=== PATIENT | male | born 1970 | race Caucasian/White ===

== ENCOUNTER 2020-01-08 15:27 | Inpatient (IN) | payer MEDICAID, OTHER ==
[~2020-01-08] VITALS: Ht 198.1 cm; Wt 159.0 kg
[2020-01-08] MEDS ORDERED: SODIUM CHLORIDE 0.9% 1,000 ML IV ONE ×2 (16:00)
[2020-01-08] MEDS ORDERED: THIAMINE 100mg/ml INJ (200mg/2ml VIAL) IV ONE (16:00)
[2020-01-08 17:02] LABS: Basophils # (auto) 0.1 10 ^3/uL (0-0.2); Eosinophils # (auto) 0.2 10 ^3/uL (0-0.8); Eosinophils % (auto) 3.4 % (0.0-7.0); Hematocrit 35.5 % (41.0-53.0); Lymphocytes # (auto) 1.3 10 ^3/uL (0.4-5.4); Monocytes # (auto) 0.4 10 ^3/uL (0-1.3); Neutrophils # (auto) 2.5 10 ^3/uL (1.6-8.6); Nucleated Red Blood Cells % 0.1 %; Red Blood Cells 4.42 10^6/uL (4.5-5.90); White Blood Cell 4.5 10^3/uL (4.4-10.8)
[2020-01-08 17:06] LABS: Basophils % (auto) 2.2 % (0.0-2.0); Hemoglobin 11.4 g/dL (13.5-17.5); Mean Corpuscular Hemoglobin 25.8 pg (28.0-32.0); Mean Corpuscular Hgb Conc. 32.2 g/dL (32.0-36.0); Mean Corpuscular Volume 80.2 fL (80.0-100.0); Monocytes % (auto) 9.4 % (0.0-12.0); Platelet Count (auto) 300 10^3/uL (140-450); Red Cell Distribution Width 15.8 % (11.8-14.3)
[2020-01-08 17:14] LABS: Albumin 2.9 g/dL (3.4-5.0); Anion Gap 7 (5-15); Blood Urea Nitrogen 11 mg/dL (7-18); Calcium 7.4 mg/dL (8.5-10.1); Carbon Dioxide 23 mmol/L (21-32); Chloride 113 mmol/L (98-107); Glucose 98 mg/dL (74-106); Magnesium 2.5 mg/dL (1.6-2.6); Potassium 3.4 mmol/L (3.5-5.1); Sodium 143 mmol/L (136-145)
[2020-01-08 17:17] LABS: CRP High Sensitivity 0.11 mg/dL (< 0.3)
[2020-01-08 17:20] LABS: Alanine Aminotransferase 20 U/L (16-61); Alkaline Phosphatase 72 U/L (45-117); Aspartate Aminotransferase 18 U/L (15-37); BUN/Creatinine Ratio 12.2; Bilirubin, Total 0.2 mg/dL (0.2-1.0); GFR African American 114 mL/min; GFR Non-African American 95 mL/min; INR 0.93 (0.9-1.15); Partial Thromboplastin Time 22.7 sec (23.0-31.2); Total Protein 5.9 g/dL (6.4-8.2)
[2020-01-08] MEDS ORDERED: LABETALOL HCL 5 MG/ML 4ML SYRINGE IV PRN (18:30)
[2020-01-08] MEDS ORDERED: NITROGLYCERIN 0.4 MG SL TAB SL PRN (18:30)
[2020-01-08] MEDS ORDERED: POTASSIUM EFFERVESENT TAB 25 MEQ GT ONE (18:30)
[2020-01-08] MEDS ORDERED: MORPHINE SULF INJ 2 MG/ML SYRINGE 1ML IV PRN (18:30)
[2020-01-08 20:20] VITALS: BP 137/86
--- NOTE | 2020-01-08 20:20 | NUR ---
Pt arrived via stretcher. pt transferred self to hospital bed. pt is ambulatory. pt is on room air.
--- NOTE | 2020-01-08 21:50 | NUR ---
rapid Key swab sample collected
--- NOTE | 2020-01-08 21:55 | NUR ---
MRSA swab sample collected
[2020-01-08] MEDS: LORazepam 0.5 MG TAB PO PRN (22:24)
[2020-01-08] MEDS: APIXABAN 5 MG TAB PO SCH (22:24)
--- NOTE | 2020-01-08 23:00 | NUR ---
Rapid Key swab and MRSA swab walked to lab by [employer] Repairer.
[2020-01-09] MEDS: ONDANSETRON HCL 4 MG/2 ML VIAL IV PRN (00:31)
[2020-01-09] MEDS ORDERED: ARIP1TAB7 PO (01:05)
[2020-01-09] MEDS ORDERED: SERT25TA84 PO (01:05)
[2020-01-09] MEDS ORDERED: APIX5TAB PO (01:05)
[2020-01-09] MEDS: HYDROcodone-ACET 5/325MG TAB PO PRN ×3 (04:28→17:59)
[2020-01-09 05:00] VITALS: BP 150/91
--- NOTE | 2020-01-09 05:10 | NUR ---
H In House Covid 19 swab walked down to lab by Breezy FLOYD.
--- NOTE | 2020-01-09 07:31 | NUR ---
closing note. pt dangling at the bedside. pt is on room air. no s/s of distress at this time. endorsed care to melody Bernal.
--- NOTE | 2020-01-09 08:00 | NUR ---
Opening Shift Note Assumed care of patient, awake, alert and oriented X4. No S/S of distress/SOB, complains of right arm pain, 8/10, informed will medicate with prescribed pain medication, verbalized understanding. Tele# 19, sinus tachycardia @ 94 bpm. IV to left forearm, 18 gauge, patent and saline locked. Instructed on POC and to call for assist PRN, verbalized understanding. Bed locked, in lowest position, call light within reach, will continue to monitor for changes Q1hr and PRN.
[2020-01-09 08:52] VITALS: BP 142/83
[2020-01-09 08:54] LABS: Basophils # (auto) 0.1 10 ^3/uL (0-0.2); Eosinophils # (auto) 0.1 10 ^3/uL (0-0.8); Hemoglobin 11.2 g/dL (13.5-17.5); Mean Corpuscular Volume 79.3 fL (80.0-100.0); Neutrophils # (auto) 4.7 10 ^3/uL (1.6-8.6); White Blood Cell 6.7 10^3/uL (4.4-10.8)
[2020-01-09 08:57] LABS: Eosinophils % (auto) 1.9 % (0.0-7.0); Lymphocytes # (auto) 1.2 10 ^3/uL (0.4-5.4); Lymphocytes % (auto) 17.6 % (10.0-50.0); Mean Corpuscular Hemoglobin 26.1 pg (28.0-32.0); Monocytes # (auto) 0.6 10 ^3/uL (0-1.3); Monocytes % (auto) 8.5 % (0.0-12.0); Nucleated Red Blood Cells % 0.1 %; Platelet Count (auto) 242 10^3/uL (140-450); Red Blood Cells 4.28 10^6/uL (4.5-5.90); Red Cell Distribution Width 15.7 % (11.8-14.3)
[2020-01-09 09:12] LABS: Albumin 2.8 g/dL (3.4-5.0); Potassium 3.9 mmol/L (3.5-5.1)
[2020-01-09 09:27] LABS: BUN/Creatinine Ratio 12.7; Bilirubin, Total 0.4 mg/dL (0.2-1.0); Calcium 7.7 mg/dL (8.5-10.1); Total Protein 5.6 g/dL (6.4-8.2)
--- NOTE | 2020-01-09 09:30 | NUR ---
ROUNDS Jose Angel Montenegro at bedside for Cardiology consult. New orders received and followed through. Patient updated on plan of care, verbalized understanding.
[2020-01-09] MEDS: DOCUSATE CALCIUM 240 MG CAP PO SCH (10:00)
[2020-01-09] MEDS: THIAMINE HCL 100 MG TAB PO SCH (10:40)
[2020-01-09] MEDS: APIXABAN 5 MG TAB PO SCH ×2 (10:40→21:28)
[2020-01-09] MEDS: amLODIPine BESYLATE 5 MG TAB PO SCH (10:40)
[2020-01-09] MEDS: PANTOPRAZOLE 40 MG TAB PO SCH (10:40)
--- NOTE | 2020-01-09 11:45 | NUR ---
COVID In-House COVID negative, informed EVERETT Caballero, Charge Nurse, verbalized understanding.
--- NOTE | 2020-01-09 11:46 | NUR ---
WOUND CARE NOTE: Wound care in to see patient per wound care request regarding "Rt Toe abrasions". Bedside nurse took photograph of patient's abrasions upon admission for reference. Patient is 49 years old male with admitted for Chest Pain. Patient is resting in bed in Rm. 244-8. He's awake, alert and fully oriented. He's in no stated pain at this time. He's ambulatory and self turning and repositioning. His Delmar score is 20. No other wound noted other than open abrasions to patient's Rt 4th toe (0.5x0.5cm) and Rt 5th toe (1x1cm). Abrasions are red with pink yuni wound, no drainage or odor noted. Patient reported abrasions are from wearing an ill fitting shoe without socks. Patient denies history of Diabetes. Cleansed patient's Rt toe abrasions with mild soap and water, patted dry, applied Thera honey gel and covered with Bad aid. Patient tolerated well. No further wound care monitoring needed at this time. RECOMMENDATION: Nursing to continue with EOD/PRN dressing change to Rt 4th and Rt 5th toe abrasions per MD order, reconsult for active wound, pressure injury, Low Delmar score of 12 and below. Addendum: 01/09/20 at 1449 by Naya Baer RN Amended: Links added.
[2020-01-09 12:35] VITALS: BP 148/81
[2020-01-09 14:22] LABS: Urine Bacteria NONE SEEN /hpf (None Seen); Urine Blood Negative /uL (Negative); Urine Specific Gravity 1.013 (1.001-1.035); Urine WBC <1 /hpf (0 - 3)
[2020-01-09 14:33] LABS: Alcohol, Urine < 3.0 mg/dL (0-10); Amphetamine Screen, Urine NEGATIVE (NEGATIVE); Barbiturate Scree,Urine NEGATIVE (NEGATIVE); Benzodiazephine Screen, Urine NEGATIVE (NEGATIVE); Cannabinoid Screen, Urine NEGATIVE (NEGATIVE); Cocaine Screen, Urine NEGATIVE (NEGATIVE); Opiate Scree,Urine NEGATIVE (NEGATIVE); Phencyclidine Screen, Urine NEGATIVE (NEGATIVE)
--- NOTE | 2020-01-09 16:12 | NUR ---
REPORT Verbal report given to EVERETT Kent. Patient to be transported to room 285-B.
[2020-01-09 16:33] VITALS: BP 141/94
--- NOTE | 2020-01-09 16:40 | NUR ---
TRANSFERRED TO ROOM 285-B Patient transferred to room 285-B via wheelchair with all personal belongings, no distress noted upon departure.
--- NOTE | 2020-01-09 16:42 | NUR ---
Received patient from [facility]. A/O x4, no s/s of distress noted, reports 7/10 pain. Bed in low and locked position. Will continue to monitor q1hr and prn
[2020-01-09 17:28] VITALS: BP 141/84
--- NOTE | 2020-01-09 17:59 | NUR ---
medicated for pain to the right arm
--- NOTE | 2020-01-09 19:48 | NUR ---
Tele box 19 from [facility] sent back to ICU, will request new one for patient.
--- NOTE | 2020-01-09 20:00 | NUR ---
Opening Shift Note Assumed care of patient, awake and alert. No S/S of distress/SOB or pain. Instructed on POC and to call for assist PRN, will continue to monitor for changes Q1hr and PRN.
[2020-01-09] MEDS: LORazepam 0.5 MG TAB PO PRN (21:28)
[2020-01-09 22:00] VITALS: BP 142/81
[2020-01-10 05:07] VITALS: BP 120/84
[2020-01-10 06:15] LABS: Anion Gap 4 (5-15); BUN/Creatinine Ratio 15.4; Blood Urea Nitrogen 12 mg/dL (7-18); Calcium 8.2 mg/dL (8.5-10.1); Carbon Dioxide 27 mmol/L (21-32); Chloride 107 mmol/L (98-107); GFR African American 135 mL/min; GFR Non-African American 112 mL/min; Glucose 90 mg/dL (74-106); Magnesium 2.5 mg/dL (1.6-2.6); Potassium 4.2 mmol/L (3.5-5.1); Sodium 138 mmol/L (136-145)
--- NOTE | 2020-01-10 07:18 | NUR ---
Report given to Hanny Dickerson, patient is resting no distress.
--- NOTE | 2020-01-10 07:30 | NUR ---
Opening Shift Note Assumed care of patient, awake and alert. No S/S of distress/SOB or pain on room air. Instructed on POC and to call for assist PRN, will continue to monitor for changes Q1hr and PRN. Bed in low and locked position, rails up x2, no-slip socks on.
[2020-01-10] MEDS: HYDROcodone-ACET 5/325MG TAB PO PRN ×3 (08:14→22:38)
[2020-01-10 08:43] VITALS: BP 156/87
--- NOTE | 2020-01-10 10:00 | NUR ---
CAUSE ANALYST KIM AT NURSES STATION PATIENT REQUESTING TO PROCEED WITH STRESS TEST TOMORROW, ORDERS TO BE ADDED, NPO AT MIDNIGHT.
[2020-01-10] MEDS: DOCUSATE CALCIUM 240 MG CAP PO SCH (10:07)
[2020-01-10] MEDS: amLODIPine BESYLATE 5 MG TAB PO SCH (10:07)
[2020-01-10] MEDS: PANTOPRAZOLE 40 MG TAB PO SCH (10:08)
[2020-01-10] MEDS: APIXABAN 5 MG TAB PO SCH ×2 (10:08→22:39)
[2020-01-10] MEDS: THIAMINE HCL 100 MG TAB PO SCH (10:08)
--- NOTE | 2020-01-10 11:37 | NUR ---
DR MONTOYA AT BEDSIDE
[2020-01-10 13:00] VITALS: BP 132/75
--- NOTE | 2020-01-10 14:20 | NUR ---
SEAFOOD HARVESTER AT BEDSIDE
[2020-01-10 16:41] VITALS: BP 143/80
[2020-01-10 22:15] VITALS: BP 125/82
[2020-01-10] MEDS: LORazepam 0.5 MG TAB PO PRN (22:38)
[2020-01-11] VITALS (9 sets, daily range): BP systolic 107–142; BP diastolic 66–90
[2020-01-11] MEDS: HYDROcodone-ACET 5/325MG TAB PO PRN ×3 (04:59→21:16)
--- NOTE | 2020-01-11 07:15 | NUR ---
closing note pt resting in semi fowlers with eyes closed. no s/s of pain or discomfort. endorsed care to day shift EVERETT Lei.
[2020-01-11] MEDS ORDERED: ADENOSINE IV STA (08:29)
[2020-01-11] MEDS ORDERED: GIVE UN DILUTED IV STA (08:29)
[2020-01-11] MEDS: DOCUSATE CALCIUM 240 MG CAP PO SCH ×2 (10:00→12:01)
[2020-01-11] MEDS ORDERED: dilTIAZem 25 MG/5 ML VIAL IV ONE ×2 (10:30)
[2020-01-11] MEDS ORDERED: DIGOXIN (250MCG/ML) 2 ML AMPULE ONE (10:56)
[2020-01-11] MEDS ORDERED: SODIUM CHLORIDE 0.9% 500 ML IV ONE (11:00)
[2020-01-11] MEDS ORDERED: DIGOXIN (250MCG/ML) 2 ML AMPULE IV ONE ×2 (11:00→15:45)
--- NOTE | 2020-01-11 11:27 | NUR ---
PATIENT WAS NOTED TO HAVE SUSTAINED TACHYCARDIA AFTER STRESS TEST WAS COMPLETED. AT THAT TIME HEATH ALVAREZ WAS NOTIFIED OF HR AND ORDERS WERE RECEIVED AND CARRIED OUT. MONITORED PATIENT FOR OVER AN HOUR. PER HEATH ALVAREZ OK TO SEND PATIENT BACK TO FLOOR AFTER LAST SET OF IMAGES IN RADIOLOGY. CALLED FABIANO APONTE RN AND UPDATED HER ON PATIENTS STATUS AND LET HER KNOW CARDIOLOGY WOULD LIKE AND UPDATE IN AN HOUR REGARDING PATIENTS HR AND RHYTHM.
[2020-01-11] MEDS: PANTOPRAZOLE 40 MG TAB PO SCH (12:01)
[2020-01-11] MEDS: APIXABAN 5 MG TAB PO SCH ×2 (12:01→21:14)
[2020-01-11] MEDS: THIAMINE HCL 100 MG TAB PO SCH (12:02)
[2020-01-11] MEDS: amLODIPine BESYLATE 5 MG TAB PO SCH (12:03)
--- NOTE | 2020-01-11 15:18 | NUR ---
Spoke to Viktoria regarding pt's HR go up to 160 and EKG shows AF with RVR. Received new orders, noted and carried it out.
--- NOTE | 2020-01-11 15:42 | NUR ---
Viktoria QUALITY LAB TECHNICIAN at bedside stated to hold DC and give metoprolol 5 mg IV once and Digoxin 500 mcg once IV.
--- NOTE | 2020-01-11 15:44 | NUR ---
Held DC per Viktoria JOE.
[2020-01-11] MEDS ORDERED: AMIODARONE HCL 150 MG in D5W 5% 100 ML IV ONE (15:45)
[2020-01-11] MEDS ORDERED: METOPROLOL TARTRATE 1MG/1ML-5ML VIAL IV ONE (15:45)
[2020-01-11] MEDS ORDERED: AMIODARONE 450mg/250ml AE 250 ML IV SCH ×2 (16:00→22:00)
--- NOTE | 2020-01-11 20:45 | NUR ---
Ekg at bedside
--- NOTE | 2020-01-11 20:55 | NUR ---
Hospitalist Spoke with hospitalist Xavier regarding pt complaints of palpitations. Presented EKG to hospitalist as well. No new orders received. EKG signed and placed in chart.
[2020-01-11] MEDS: AMIODARONE HCL 200 MG TAB PO SCH (21:14)
[2020-01-11] MEDS: LORazepam 0.5 MG TAB PO PRN (21:15)
[2020-01-11] MEDS: METOPROLOL TARTRATE 25 MG TAB PO SCH (21:15)
[2020-01-12] MEDS ORDERED: AMIODARONE 450mg/250ml AE 250 ML IV ONE (00:44)
[2020-01-12] MEDS: HYDROcodone-ACET 5/325MG TAB PO PRN ×4 (02:09→21:34)
[2020-01-12] MEDS: ONDANSETRON HCL 4 MG/2 ML VIAL IV PRN ×2 (02:09→21:32)
[2020-01-12 05:00] VITALS: BP 104/60
--- NOTE | 2020-01-12 07:23 | NUR ---
closing note pt is resting in right lateral position. pt is on an amiodarone IV drip at a rate of 16.66ml/hr. no s/s of distress at this time. pt is stable. endorsed care to day shift RN
--- NOTE | 2020-01-12 07:29 | NUR ---
Spoke to Viktoria LAST SAWYER regarding Amiodarone drip was running 1 mg all night, per Viktoria to stop the drip and monitor.
[2020-01-12 09:00] VITALS: BP 106/69
--- NOTE | 2020-01-12 09:13 | NUR ---
Viktoria BECK OPERATOR at bedside informed patient that he is going to get ALDO with cardioversion by Dr. Hand this afternoon.
[2020-01-12] MEDS: PANTOPRAZOLE 40 MG TAB PO SCH (09:23)
[2020-01-12] MEDS: AMIODARONE HCL 200 MG TAB PO SCH ×2 (09:23→22:50)
[2020-01-12] MEDS: APIXABAN 5 MG TAB PO SCH ×2 (09:23→22:50)
[2020-01-12] MEDS: amLODIPine BESYLATE 5 MG TAB PO SCH (09:23)
[2020-01-12] MEDS: THIAMINE HCL 100 MG TAB PO SCH (09:24)
[2020-01-12] MEDS: METOPROLOL TARTRATE 25 MG TAB PO SCH ×2 (09:24→22:51)
[2020-01-12] MEDS: DOCUSATE CALCIUM 240 MG CAP PO SCH (09:24)
--- NOTE | 2020-01-12 11:30 | NUR ---
Per Dr. Shin to hold DC, monitor patient after cardioversion.
[2020-01-12 13:00] VITALS: BP 121/72
[2020-01-12] MEDS ORDERED: LIDOCAINE VISCOUS 2% 15ML UD ONE (13:33)
[2020-01-12] MEDS ORDERED: fentaNYL CITRATE 100 MCG/2 ML VL ONE (13:33)
[2020-01-12] MEDS ORDERED: MIDAZOLAM HCL 1MG/1ML-2 ML VIAL ONE (13:33)
[2020-01-12] MEDS ORDERED: ONDANSETRON HCL 4 MG/2 ML VIAL ONE (13:52)
[2020-01-12] MEDS ORDERED: fentaNYL CITRATE 100 MCG/2 ML VL IV ONE (14:30)
[2020-01-12] MEDS ORDERED: MIDAZOLAM HCL 1MG/1ML-2 ML VIAL IV ONE (14:30)
[2020-01-12] MEDS ORDERED: LIDOCAINE VISCOUS 2% 15ML UD PO PRN (14:30)
--- NOTE | 2020-01-12 14:47 | NUR ---
Nutrition Assessment Notes Please refer to link for full assessment notes. Est Energy needs: 1717-7671 kcals (11-14 kcal/kgBW) Est Protein needs: 125-156 gms/day (0.8-1.0 gm/kgBW) Will continue to monitor and reassess prn. Addendum: 01/12/20 at [address] Amended: Links added.
[2020-01-12 14:59] VITALS: BP 102/65
--- NOTE | 2020-01-12 15:00 | NUR ---
Patient came back from laboratory [facility]er s/p cardioversion. Patient awake, alert, oriented x 4 and verbally responsive. No respiratory distress noted .Skin is warm and dry to touch. EKG shows NSR 70-80. Denied any pain at this time. Placed a call light within reach, will continue to monitor.
[2020-01-12 17:00] VITALS: BP 117/52
[2020-01-12 22:00] VITALS: BP 113/62
[2020-01-12] MEDS: LORazepam 0.5 MG TAB PO PRN (23:02)
[2020-01-13 05:00] VITALS: BP 127/57
[2020-01-13] MEDS: ONDANSETRON HCL 4 MG/2 ML VIAL IV PRN (05:38)
[2020-01-13] MEDS: HYDROcodone-ACET 5/325MG TAB PO PRN (05:40)
--- NOTE | 2020-01-13 05:40 | NUR ---
Reva 5/325 i po and zofran given for c/o pain and nausea prob with Reva. Pt falling asleep easily between requesting and receiving meds. Also requested crackers to help soothe his stomach. No gelatin available at this time.
[2020-01-13 07:09] LABS: Basophils # (auto) 0.1 10 ^3/uL (0-0.2); Eosinophils # (auto) 0.3 10 ^3/uL (0-0.8); Eosinophils % (auto) 4.8 % (0.0-7.0); Hematocrit 39.5 % (41.0-53.0); Hemoglobin 12.6 g/dL (13.5-17.5); Lymphocytes # (auto) 1.3 10 ^3/uL (0.4-5.4); Lymphocytes % (auto) 21.7 % (10.0-50.0); Mean Corpuscular Hemoglobin 25.5 pg (28.0-32.0); Mean Corpuscular Hgb Conc. 31.9 g/dL (32.0-36.0); Mean Corpuscular Volume 79.9 fL (80.0-100.0); Monocytes # (auto) 0.7 10 ^3/uL (0-1.3); Monocytes % (auto) 11.6 % (0.0-12.0); Neutrophils # (auto) 3.8 10 ^3/uL (1.6-8.6); Neutrophils % (auto) 60.9 % (37.0-80.0); Nucleated Red Blood Cells % 0.1 %; Platelet Count (auto) 244 10^3/uL (140-450); Red Blood Cells 4.94 10^6/uL (4.5-5.90); Red Cell Distribution Width 16.3 % (11.8-14.3); White Blood Cell 6.2 10^3/uL (4.4-10.8)
[2020-01-13 07:28] LABS: Potassium 4.1 mmol/L (3.5-5.1)
[2020-01-13 07:32] LABS: BUN/Creatinine Ratio 16.8; Calcium 8.5 mg/dL (8.5-10.1)
[2020-01-13 09:00] VITALS: BP 138/86
[2020-01-13] MEDS: THIAMINE HCL 100 MG TAB PO SCH (09:51)
[2020-01-13] MEDS: METOPROLOL TARTRATE 25 MG TAB PO SCH (09:52)
[2020-01-13] MEDS: APIXABAN 5 MG TAB PO SCH (09:52)
[2020-01-13] MEDS: AMIODARONE HCL 200 MG TAB PO SCH (09:52)
[2020-01-13] MEDS: PANTOPRAZOLE 40 MG TAB PO SCH (09:52)
[2020-01-13] MEDS: DOCUSATE CALCIUM 240 MG CAP PO SCH (09:54)
[2020-01-13 13:00] VITALS: BP 143/83
[2020-01-13] MEDS ORDERED: AMIO200T4 PO (13:18)
[2020-01-13] MEDS ORDERED: MET25T PO (13:18)
--- NOTE | 2020-01-13 15:55 | NUR ---
Discharge instructions given as ordered. Encourage to follow up with PMD as instructed. All questions and concerns addressed. Patient verbalized understanding. Medication reconciliation form completed and copy given to patient. IV removed with catheter intact, pressure dressing applied. Telemetry unit returned to ICU. Patient ambulated to vehicle with all personal belongings, accompanied by staff and . No distress noted at time of departure.
== END 2020-01-13 15:55 | disposition home or self-care (01) | DRG 203 ==
LOC: EDBD 15:27 → ER 15:27 → TELE 15:28 → TELE-E-ADS 20:20 → TELE-WESTW 01-09 16:42
PROVIDERS: ADMIT Family Medicine; ATTEND Internal Medicine
PROC: 5A2204Z Restoration of Cardiac Rhythm, Single (ICD-10-PCS; principal; 2020-01-12)
PROC: B24BZZ4 Ultrasonography of Heart with Aorta, Transesophageal (ICD-10-PCS; 2020-01-12)
DX: R07.89 Other chest pain (principal); I48.19 Other persistent atrial fibrillation; I11.0 Hypertensive heart disease with heart failure; E87.6 Hypokalemia; D64.9 Anemia, unspecified; F10.129 Alcohol abuse with intoxication, unspecified; E83.51 Hypocalcemia; Z68.41 Body mass index [BMI] 40.0-44.9, adult; E66.01 Morbid (severe) obesity due to excess calories; Z20.828 Contact with and (suspected) exposure to other viral communicable diseases; F41.8 Other specified anxiety disorders; Y90.9 Presence of alcohol in blood, level not specified; I50.9 Heart failure, unspecified; Z79.01 Long term (current) use of anticoagulants; Z86.718 Personal history of other venous thrombosis and embolism; Z91.040 Latex allergy status; Z88.2 Allergy status to sulfonamides; Z79.899 Other long term (current) drug therapy; E77.8 Other disorders of glycoprotein metabolism; E44.1 Mild protein-calorie malnutrition
CPT/HCPCS: 36415; 71045; 78452; 80048; 80053; 80061; 80307; 80320; 81001; 82607; 82728; 83615; 83735; 83880; 84443; 84484; 85025; 85379; 85610; 85730; 86141; 87081; 87426; 93005; 93017; 93306; 93312; 93971; 96361; 96374; 99152; G0378; J0153; J2250; J2405; J7060

== ENCOUNTER 2020-01-27 02:14 | Emergency (ER) | payer MEDICAID ==
[~2020-01-27] VITALS: Ht 195.6 cm; Wt 145.1 kg
[~2020-01-27 02:14] MED LIST: AMIO200T4 PO; APIX5TAB PO; ARIP1TAB7 PO; MET25T PO; SERT25TA84 PO
[2020-01-27] MEDS ORDERED: PROMETHAZINE HCL 25 MG/ML 1ML IV ONE (03:00)
[2020-01-27 03:05] LABS: Basophils # (auto) 0.1 10 ^3/uL (0-0.2); Eosinophils # (auto) 0 10 ^3/uL (0-0.8); Eosinophils % (auto) 0.5 % (0.0-7.0); Hemoglobin 14.2 g/dL (13.5-17.5); Mean Corpuscular Hemoglobin 24.9 pg (28.0-32.0); Monocytes # (auto) 0.4 10 ^3/uL (0-1.3)
[2020-01-27 03:07] LABS: Basophils % (auto) 1.9 % (0.0-2.0); Hematocrit 43.9 % (41.0-53.0); Lymphocytes % (auto) 35.5 % (10.0-50.0); Mean Corpuscular Hgb Conc. 32.3 g/dL (32.0-36.0); Monocytes % (auto) 7.4 % (0.0-12.0); Neutrophils % (auto) 54.7 % (37.0-80.0); Nucleated Red Blood Cells % 0.2 %; Platelet Count (auto) 317 10^3/uL (140-450); Red Blood Cells 5.69 10^6/uL (4.5-5.90); Red Cell Distribution Width 17.3 % (11.8-14.3); White Blood Cell 5.5 10^3/uL (4.4-10.8)
[2020-01-27 03:21] LABS: Albumin 3.2 g/dL (3.4-5.0); Anion Gap 12 (5-15); Blood Urea Nitrogen 12 mg/dL (7-18); Carbon Dioxide 20 mmol/L (21-32); Chloride 107 mmol/L (98-107); Glucose 93 mg/dL (74-106); Magnesium 2.5 mg/dL (1.6-2.6); Potassium 4.1 mmol/L (3.5-5.1); Sodium 139 mmol/L (136-145)
[2020-01-27 03:23] LABS: INR 0.99 (0.9-1.15)
[2020-01-27 03:26] LABS: Partial Thromboplastin Time < 20.0 sec (23.0-31.2)
[2020-01-27 03:27] LABS: Alanine Aminotransferase 48 U/L (16-61); Alkaline Phosphatase 173 U/L (45-117); Aspartate Aminotransferase 37 U/L (15-37); BUN/Creatinine Ratio 10.4; Bilirubin, Total 0.4 mg/dL (0.2-1.0); GFR African American 86 mL/min; GFR Non-African American 71 mL/min; Total Protein 6.6 g/dL (6.4-8.2)
[2020-01-27] MEDS ORDERED: IOHEXOL 350 MG/ML 100ML IJ ONE (03:56)
[2020-01-27] MEDS ORDERED: SODIUM CHLORIDE 0.9% 1,000 ML IV ONE (04:00)
[2020-01-27] MEDS ORDERED: THIAMINE INJ 100 MG in SODIUM CHLORIDE 0.9% 1,000 ML IV ONE (04:00)
[2020-01-27] MEDS ORDERED: THIAMINE 100mg/ml INJ (200mg/2ml VIAL) ONE (04:17)
[2020-01-27] MEDS ORDERED: LORazepam 2MG/ML-1ML VIAL IV ONE ×3 (05:15→08:30)
[2020-01-27] MEDS ORDERED: levETIRAcetam 500 MG/5ML INJ IV ONE (05:44)
[2020-01-27] MEDS ORDERED: ONDANSETRON HCL 4 MG/2 ML VIAL ONE (08:28)
[2020-01-27] MEDS ORDERED: LORazepam 2MG/ML-1ML VIAL ONE (08:28)
[2020-01-27] MEDS ORDERED: ONDANSETRON HCL 4 MG/2 ML VIAL IV ONE (08:30)
[2020-01-27 09:09] VITALS: BP 136/82
== END 2020-01-27 10:59 | disposition home or self-care (01) ==
LOC: EDBD 02:14 → ER 02:19
DX: F10.920 Alcohol use, unspecified with intoxication, uncomplicated (principal); K21.9 Gastro-esophageal reflux disease without esophagitis; R07.89 Other chest pain; I48.0 Paroxysmal atrial fibrillation; I10 Essential (primary) hypertension; Z88.8 Allergy status to other drugs, medicaments and biological substances; Z88.2 Allergy status to sulfonamides; Z79.899 Other long term (current) drug therapy
CPT/HCPCS: 36415; 71045; 71275; 80053; 80320; 83735; 83880; 84443; 84484; 85025; 85379; 85610; 85730; 93005; 96365; 96367; 96375; 96376; 99285; J1953; J2060; J2405; J2550; J3411; J7030; J7060; Q9967

== ENCOUNTER 2022-09-09 22:03 | Inpatient (IN) | payer MEDICAID ==
[~2022-09-09] VITALS: Ht 198.1 cm; Wt 150.0 kg
[~2022-09-09 22:03] MED LIST changes: +AMIO200T13 PO; -AMIO200T4 PO
[2022-09-09] MEDS ORDERED: ADENOSINE 6 MG/2 ML INJ IV ONE ×3 (22:28→22:30)
[2022-09-09] MEDS ORDERED: dilTIAZem 25 MG/5 ML VIAL IV ONE ×3 (22:36→23:45)
[2022-09-09] MEDS ORDERED: METOPROLOL TARTRATE 1MG/1ML-5ML VIAL IV ONE ×2 (22:39→23:45)
[2022-09-09] MEDS ORDERED: AMIODARONE HCL (50 MG/ ML) 3 ML VIAL IV ONE (22:43)
[2022-09-09 22:57] LABS: Albumin 3.4 g/dL (3.4-5.0); BUN/Creatinine Ratio 11.4 (10.0-20.0); Basophils # (auto) 0.1 10 ^3/uL (0-0.2); Calcium 8.1 mg/dL (8.5-10.1); Eosinophils # (auto) 0 10 ^3/uL (0-0.8); Eosinophils % (auto) 0.3 % (0.0-7.0); Magnesium 1.9 mg/dL (1.6-2.6); Mean Corpuscular Hemoglobin 28.2 pg (28.0-32.0); Monocytes # (auto) 0.7 10 ^3/uL (0-1.3); Neutrophils # (auto) 6.2 10 ^3/uL (1.6-8.6); Potassium 3.7 mmol/L (3.5-5.1)
[2022-09-09 22:59] LABS: Hematocrit 50.4 % (41.0-53.0); Hemoglobin 16.9 g/dL (13.5-17.5); Lymphocytes # (auto) 1.7 10 ^3/uL (0.4-5.4); Lymphocytes % (auto) 19.1 % (10.0-50.0); Mean Corpuscular Hgb Conc. 33.6 g/dL (32.0-36.0); Mean Corpuscular Volume 83.9 fL (80.0-100.0); Monocytes % (auto) 7.9 % (0.0-12.0); Neutrophils % (auto) 71.7 % (37.0-80.0); Nucleated Red Blood Cells % 0.1 %; Red Cell Distribution Width 15.3 % (11.8-14.3); White Blood Cell 8.7 10^3/uL (4.4-10.8)
[2022-09-09] MEDS ORDERED: AMIODARONE 450mg/250ml AE 250 ML IV ONE (23:04)
[2022-09-09 23:05] LABS: Bilirubin, Total 0.7 mg/dL (0.2-1.0); INR 1.05 (0.9-1.15); Partial Thromboplastin Time 26.7 SEC (24.5-34.5); Total Protein 6.9 g/dL (6.4-8.2)
[2022-09-09] MEDS ORDERED: AMIODARONE HCL 150 MG in D5W 5% 100 ML IV ONE (23:15)
[2022-09-09] MEDS ORDERED: AMIODARONE 450mg/250ml AE 250 ML IV SCH (23:30)
[2022-09-09] MEDS ORDERED: ONDANSETRON HCL 4 MG/2 ML VIAL IV ONE (23:30)
[2022-09-09] MEDS ORDERED: LORazepam 2MG/ML-1ML VIAL IV ONE (23:30)
[2022-09-10 01:03] LABS: Lactic Acid w/Reflex 5.6 mmol/L (0.4-2.0)
[2022-09-10] MEDS ORDERED: ACETAMINOPHEN 325 MG TAB PO PRN (01:15)
[2022-09-10] MEDS ORDERED: MORPHINE SULFATE INJ 2 MG/ml SYRG IV PRN (01:15)
[2022-09-10] MEDS ORDERED: NITROGLYCERIN 0.4 MG SL TAB SL PRN (01:15)
[2022-09-10] MEDS ORDERED: chlordiazePOXIDE HCL 25 MG CAP PO PRN (01:15)
[2022-09-10] MEDS: TEMAZEPAM 15 MG CAP PO PRN (02:13)
[2022-09-10] MEDS ORDERED: TEMAZEPAM 15 MG CAP PO ONE (03:30)
[2022-09-10] MEDS ORDERED: SODIUM CHLORIDE 0.9% 500 ML IV ONE (05:30)
[2022-09-10] MEDS ORDERED: cefTRIAXone 1GM/50ML D5W 50 ML IV SCH (05:30)
[2022-09-10] MEDS ORDERED: DIGOXIN (250MCG/ML) 2 ML AMPULE IV ONE (05:45)
[2022-09-10] MEDS ORDERED: dilTIAZem 25 MG/5 ML VIAL IV ONE (07:00)
[2022-09-10] MEDS: AMIODARONE 450mg/250ml AE 250 ML IV SCH ×2 (07:19→20:54)
[2022-09-10] MEDS ORDERED: IOHEXOL 350 MG/ML 100ML IJ ONE (07:41)
[2022-09-10] MEDS: PANTOPRAZOLE 40 MG TAB PO SCH (08:10)
[2022-09-10] MEDS: ONDANSETRON HCL 4 MG/2 ML VIAL IV PRN (08:17)
[2022-09-10] MEDS: APIXABAN 5 MG TAB PO SCH ×2 (08:19→22:00)
[2022-09-10 09:33] LABS: Amphetamine Screen, Urine NEGATIVE (NEGATIVE); Barbiturate Scree,Urine NEGATIVE (NEGATIVE); Benzodiazephine Screen, Urine POSITIVE (NEGATIVE); Cannabinoid Screen, Urine NEGATIVE (NEGATIVE); Cocaine Screen, Urine NEGATIVE (NEGATIVE); Opiate Scree,Urine POSITIVE (NEGATIVE); Phencyclidine Screen, Urine NEGATIVE (NEGATIVE)
[2022-09-10 09:46] LABS: Urine Bacteria NONE SEEN /hpf (None Seen); Urine Blood Negative /uL (Negative); Urine Mucus MODERATE (None Seen); Urine Specific Gravity 1.031 (1.001-1.035); Urine WBC 2 /hpf (0 - 3)
[2022-09-10] MEDS ORDERED: METOPROLOL TARTRATE 25 MG TAB PO SCH ×2 (10:00→22:00)
[2022-09-10] MEDS: LORazepam 2MG/ML-1ML VIAL IV PRN ×3 (12:18→19:52)
[2022-09-10] MEDS ORDERED: chlordiazePOXIDE HCL 25 MG CAP PO ONE (13:30)
[2022-09-10] MEDS: PROPRANOLOL HCL 20 MG TAB PO SCH ×2 (14:00→22:29)
[2022-09-10] MEDS: chlordiazePOXIDE HCL 25 MG CAP PO SCH (18:04)
[2022-09-10 18:23] LABS: Albumin 3.3 g/dL (3.4-5.0); Calcium 7.8 mg/dL (8.5-10.1); Potassium 3.4 mmol/L (3.5-5.1)
[2022-09-10 18:26] LABS: BUN/Creatinine Ratio 13.6 (10.0-20.0); Bilirubin, Total 1.4 mg/dL (0.2-1.0); Total Protein 6.4 g/dL (6.4-8.2)
[2022-09-10 19:26] LABS: Basophils # (auto) 0.1 10 ^3/uL (0-0.2); Basophils % (auto) 0.7 % (0.0-2.0); Eosinophils # (auto) 0.1 10 ^3/uL (0-0.8); Eosinophils % (auto) 1.3 % (0.0-7.0); Hemoglobin 16.5 g/dL (13.5-17.5); Lymphocytes # (auto) 1.8 10 ^3/uL (0.4-5.4); Lymphocytes % (auto) 22.8 % (10.0-50.0); Mean Corpuscular Hemoglobin 28.1 pg (28.0-32.0); Mean Corpuscular Hgb Conc. 33.7 g/dL (32.0-36.0); Mean Corpuscular Volume 83.5 fL (80.0-100.0); Monocytes # (auto) 0.7 10 ^3/uL (0-1.3); Neutrophils # (auto) 5.2 10 ^3/uL (1.6-8.6); Neutrophils % (auto) 66.2 % (37.0-80.0); Nucleated Red Blood Cells % 0.2 %; Red Blood Cells 5.87 10^6/uL (4.5-5.90); Red Cell Distribution Width 15.4 % (11.8-14.3); White Blood Cell 7.8 10^3/uL (4.4-10.8)
[2022-09-10] MEDS: ATORVASTATIN 20 MG TAB PO SCH (22:29)
[2022-09-11] MEDS: chlordiazePOXIDE HCL 25 MG CAP PO SCH ×5 (00:39→23:56)
[2022-09-11] MEDS: ONDANSETRON HCL 4 MG/2 ML VIAL IV PRN ×4 (01:15→18:25)
[2022-09-11] MEDS: LORazepam 2MG/ML-1ML VIAL IV PRN ×5 (01:15→18:25)
[2022-09-11] MEDS: PROPRANOLOL HCL 20 MG TAB PO SCH ×3 (05:58→21:46)
[2022-09-11 06:42] LABS: Basophils # (auto) 0.1 10 ^3/uL (0-0.2); Basophils % (auto) 0.9 % (0.0-2.0); Eosinophils # (auto) 0.2 10 ^3/uL (0-0.8); Eosinophils % (auto) 2.8 % (0.0-7.0); Hematocrit 44.5 % (41.0-53.0); Hemoglobin 15.1 g/dL (13.5-17.5); Lymphocytes # (auto) 1.2 10 ^3/uL (0.4-5.4); Lymphocytes % (auto) 20.7 % (10.0-50.0); Mean Corpuscular Hemoglobin 28.4 pg (28.0-32.0); Mean Corpuscular Volume 83.5 fL (80.0-100.0); Monocytes # (auto) 0.4 10 ^3/uL (0-1.3); Neutrophils % (auto) 68.6 % (37.0-80.0); Nucleated Red Blood Cells % 0.2 %; Red Blood Cells 5.33 10^6/uL (4.5-5.90); Red Cell Distribution Width 15.4 % (11.8-14.3); White Blood Cell 5.8 10^3/uL (4.4-10.8)
[2022-09-11 06:45] LABS: BUN/Creatinine Ratio 13.8 (10.0-20.0); Calcium 8.2 mg/dL (8.5-10.1); Potassium 3.3 mmol/L (3.5-5.1)
[2022-09-11] MEDS ORDERED: POTASSIUM CHL 20 Meq TABLET PO ONE (09:30)
[2022-09-11] MEDS ORDERED: ONDANSETRON HCL 4 MG/2 ML VIAL IV PRN (09:45)
[2022-09-11] MEDS: FOLIC ACID 1 MG TAB PO SCH (10:21)
[2022-09-11] MEDS: PANTOPRAZOLE 40 MG TAB PO SCH (10:22)
[2022-09-11] MEDS: THIAMINE HCL 100 MG TAB PO SCH (10:22)
[2022-09-11] MEDS: MULTIPLE VITAMIN TAB PO SCH (10:22)
[2022-09-11] MEDS: CYANOCOBALAMIN 500 MCG TAB PO SCH (10:22)
[2022-09-11] MEDS: AMIODARONE HCL 200 MG TAB PO SCH ×2 (10:22→21:47)
[2022-09-11] MEDS ORDERED: FOLIC ACID 1 MG, MULTIPLE VITAMIN 10 ML, MAGNESIUM SULF SDV 50% 8 MEQ, THIAMINE INJ 100... INJ SCH ×5 (12:00)
[2022-09-11] MEDS: TEMAZEPAM 15 MG CAP PO PRN (20:24)
[2022-09-11] MEDS: HYDROcodone-ACET 5/325MG TAB PO PRN (20:24)
[2022-09-11 21:32] VITALS: BP 120/81
[2022-09-11] MEDS: ATORVASTATIN 20 MG TAB PO SCH (21:46)
[2022-09-12] MEDS ORDERED: ACET-6 PO (01:25)
[2022-09-12] MEDS ORDERED: THIA50TA7 PO (01:25)
[2022-09-12] MEDS ORDERED: FERR324T4 PO (01:25)
[2022-09-12] MEDS ORDERED: ESCI1TAB36 PO (01:25)
[2022-09-12] MEDS ORDERED: SUCR1TAB PO (01:25)
[2022-09-12] MEDS ORDERED: ALBU108A5 INH (01:25)
[2022-09-12] MEDS ORDERED: PANT40T PO (01:25)
[2022-09-12 05:00] VITALS: BP 121/79
[2022-09-12] MEDS: chlordiazePOXIDE HCL 25 MG CAP PO SCH ×4 (06:38→23:16)
[2022-09-12] MEDS: PROPRANOLOL HCL 20 MG TAB PO SCH ×3 (06:39→21:49)
[2022-09-12] MEDS: LORazepam 2MG/ML-1ML VIAL IV PRN ×4 (06:43→23:06)
[2022-09-12 08:15] VITALS: BP 109/79
[2022-09-12 08:39] LABS: Basophils # (auto) 0 10 ^3/uL (0-0.2); Basophils % (auto) 0.6 % (0.0-2.0); Eosinophils # (auto) 0.2 10 ^3/uL (0-0.8); Eosinophils % (auto) 3.2 % (0.0-7.0); Hematocrit 44.1 % (41.0-53.0); Lymphocytes # (auto) 1.3 10 ^3/uL (0.4-5.4); Lymphocytes % (auto) 18.8 % (10.0-50.0); Mean Corpuscular Hemoglobin 28.4 pg (28.0-32.0); Mean Corpuscular Volume 83.4 fL (80.0-100.0); Monocytes # (auto) 0.5 10 ^3/uL (0-1.3); Monocytes % (auto) 6.9 % (0.0-12.0); Neutrophils # (auto) 4.8 10 ^3/uL (1.6-8.6); Neutrophils % (auto) 70.5 % (37.0-80.0); Nucleated Red Blood Cells % 0.1 %; Red Blood Cells 5.29 10^6/uL (4.5-5.90); Red Cell Distribution Width 15.2 % (11.8-14.3); White Blood Cell 6.8 10^3/uL (4.4-10.8)
[2022-09-12 09:00] VITALS: BP 109/79
[2022-09-12 09:12] LABS: Potassium 3.6 mmol/L (3.5-5.1)
[2022-09-12 09:15] LABS: Calcium 8.1 mg/dL (8.5-10.1)
[2022-09-12] MEDS: CYANOCOBALAMIN 500 MCG TAB PO SCH (10:21)
[2022-09-12] MEDS: MULTIPLE VITAMIN TAB PO SCH (10:22)
[2022-09-12] MEDS: MORPHINE SULFATE INJ 2 MG/ml SYRG IV PRN ×2 (10:22→21:52)
[2022-09-12] MEDS: THIAMINE HCL 100 MG TAB PO SCH (10:23)
[2022-09-12] MEDS: AMIODARONE HCL 200 MG TAB PO SCH ×2 (10:23→21:50)
[2022-09-12] MEDS: PANTOPRAZOLE 40 MG TAB PO SCH (10:23)
[2022-09-12] MEDS: FOLIC ACID 1 MG TAB PO SCH (10:23)
[2022-09-12] MEDS: ONDANSETRON HCL 4 MG/2 ML VIAL IV PRN ×2 (12:04→16:42)
[2022-09-12 17:00] VITALS: BP 121/55
[2022-09-12 20:00] VITALS: BP 117/74
[2022-09-12] MEDS: ATORVASTATIN 20 MG TAB PO SCH (21:50)
[2022-09-12] MEDS: NYSTATIN TOPICAL POWDER 15GM TOP SCH (21:52)
[2022-09-12 22:00] VITALS: BP 117/74
[2022-09-13 05:00] VITALS: BP 104/68
[2022-09-13] MEDS: HYDROcodone-ACET 5/325MG TAB PO PRN (05:58)
[2022-09-13] MEDS: chlordiazePOXIDE HCL 25 MG CAP PO SCH (05:58)
[2022-09-13] MEDS: PROPRANOLOL HCL 20 MG TAB PO SCH ×2 (05:58→14:00)
[2022-09-13 06:48] LABS: Albumin 2.6 g/dL (3.4-5.0); BUN/Creatinine Ratio 16.8 (10.0-20.0); Calcium 7.8 mg/dL (8.5-10.1); Potassium 3.8 mmol/L (3.5-5.1)
[2022-09-13 06:50] LABS: Bilirubin, Total 0.4 mg/dL (0.2-1.0); Total Protein 5.6 g/dL (6.4-8.2)
[2022-09-13 08:32] VITALS: BP 115/53
[2022-09-13] MEDS: LORazepam 2MG/ML-1ML VIAL IV PRN (09:16)
[2022-09-13] MEDS: CYANOCOBALAMIN 500 MCG TAB PO SCH (09:21)
[2022-09-13] MEDS: THIAMINE HCL 100 MG TAB PO SCH (09:21)
[2022-09-13] MEDS: PANTOPRAZOLE 40 MG TAB PO SCH (09:21)
[2022-09-13] MEDS: FOLIC ACID 1 MG TAB PO SCH (09:21)
[2022-09-13] MEDS: AMIODARONE HCL 200 MG TAB PO SCH (09:21)
[2022-09-13] MEDS: MULTIPLE VITAMIN TAB PO SCH (09:22)
[2022-09-13] MEDS: NYSTATIN TOPICAL POWDER 15GM TOP SCH (10:00)
[2022-09-13 10:33] VITALS: BP 117/60
[2022-09-13] MEDS ORDERED: MET25T PO (13:48)
[2022-09-13] MEDS ORDERED: AMIO200T33 PO (13:49)
[2022-09-13 17:17] VITALS: BP 118/65
== END 2022-09-13 17:10 | disposition home or self-care (01) | DRG 201 ==
LOC: EDBD 22:03 → ER 22:03 → TELE 09-10 01:19 → TELE-CENTR 09-11 21:30
PROVIDERS: ADMIT Nurse Practitioner; ATTEND Nurse Practitioner Acute Care
DX: I47.1 Supraventricular tachycardia (principal); G92.8 Other toxic encephalopathy; D69.6 Thrombocytopenia, unspecified; K70.30 Alcoholic cirrhosis of liver without ascites; E66.01 Morbid (severe) obesity due to excess calories; E78.5 Hyperlipidemia, unspecified; I10 Essential (primary) hypertension; F32.A Depression, unspecified; I25.10 Atherosclerotic heart disease of native coronary artery without angina pectoris; F10.239 Alcohol dependence with withdrawal, unspecified; K21.9 Gastro-esophageal reflux disease without esophagitis; K76.0 Fatty (change of) liver, not elsewhere classified; Z90.49 Acquired absence of other specified parts of digestive tract; Z95.828 Presence of other vascular implants and grafts; Z79.899 Other long term (current) drug therapy; Z91.040 Latex allergy status; Z88.2 Allergy status to sulfonamides; Z98.84 Bariatric surgery status; Z86.718 Personal history of other venous thrombosis and embolism; Z86.711 Personal history of pulmonary embolism; Z82.3 Family history of stroke; Z68.38 Body mass index [BMI] 38.0-38.9, adult; I48.20 Chronic atrial fibrillation, unspecified
CPT/HCPCS: 36415; 71045; 71275; 76705; 80048; 80053; 80307; 80320; 81001; 83605; 83735; 83880; 84484; 85025; 85379; 85610; 85730; 87040; 93005; 93306; 96365; 96366; 96375; 99291; G0378; J0153; J0696; J2405; J7060

== ENCOUNTER 2022-09-21 07:18 | Inpatient (IN) | payer MEDICAID ==
[~2022-09-21] VITALS: Ht 198.1 cm; Wt 185.1 kg
[~2022-09-21 07:18] MED LIST changes: +ACET-6 PO; +ALBU108A5 INH; +AMIO200T33 PO; -APIX5TAB PO; +ESCI1TAB36 PO; +FERR324T4 PO; +PANT40T PO; +SUCR1TAB PO; +THIA50TA7 PO
[2022-09-21] MEDS ORDERED: SODIUM CHLORIDE 0.9% 1,000 ML IV ONE ×3 (07:45→15:00)
[2022-09-21] MEDS ORDERED: ONDANSETRON HCL 4 MG/2 ML VIAL IV ONE (07:45)
[2022-09-21] MEDS ORDERED: THIAMINE 100mg/ml INJ (200mg/2ml VIAL) IV ONE (07:45)
[2022-09-21] MEDS ORDERED: LORazepam 2MG/ML-1ML VIAL IV ONE (07:45)
[2022-09-21] MEDS ORDERED: MORPHINE SULFATE 4 MG/ML SYR/VIAL IV ONE (07:45)
[2022-09-21 08:18] LABS: Albumin 2.7 g/dL (3.4-5.0); Anion Gap 8 (5-15); Aspartate Aminotransferase 25 U/L (15-37); Blood Alcohol < 3.0 mg/dL (<10); Blood Urea Nitrogen 9 mg/dL (7-18); Calcium 8.3 mg/dL (8.5-10.1); Carbon Dioxide 26 mmol/L (21-32); Chloride 106 mmol/L (98-107); Glucose 95 mg/dL (74-106); Lipase 100 U/L (73-393); Potassium 3.8 mmol/L (3.5-5.1); Sodium 140 mmol/L (136-145)
[2022-09-21 08:23] LABS: Alanine Aminotransferase 36 U/L (16-61); Alkaline Phosphatase 78 U/L (45-117); BUN/Creatinine Ratio 8.4 (10.0-20.0); GFR African American 93 mL/min; GFR Non-African American 77 mL/min; Total Protein 5.4 g/dL (6.4-8.2)
[2022-09-21 08:28] LABS: Basophils # (auto) 0 10 ^3/uL (0-0.2); Basophils % (auto) 0.9 % (0.0-2.0); Eosinophils # (auto) 0.1 10 ^3/uL (0-0.8); Eosinophils % (auto) 1.9 % (0.0-7.0); Hematocrit 43.4 % (41.0-53.0); Hemoglobin 14.4 g/dL (13.5-17.5); Lymphocytes # (auto) 0.9 10 ^3/uL (0.4-5.4); Lymphocytes % (auto) 20.8 % (10.0-50.0); Mean Corpuscular Hemoglobin 27.9 pg (28.0-32.0); Mean Corpuscular Hgb Conc. 33.2 g/dL (32.0-36.0); Monocytes # (auto) 0.4 10 ^3/uL (0-1.3); Monocytes % (auto) 8.7 % (0.0-12.0); Neutrophils # (auto) 2.9 10 ^3/uL (1.6-8.6); Neutrophils % (auto) 67.7 % (37.0-80.0); Nucleated Red Blood Cells % 0.1 %; Red Blood Cells 5.17 10^6/uL (4.5-5.90); Red Cell Distribution Width 15.7 % (11.8-14.3); White Blood Cell 4.3 10^3/uL (4.4-10.8)
[2022-09-21 09:56] LABS: Alcohol, Urine < 3.0 mg/dL (0-10); Amphetamine Screen, Urine NEGATIVE (NEGATIVE); Barbiturate Scree,Urine NEGATIVE (NEGATIVE); Benzodiazephine Screen, Urine POSITIVE (NEGATIVE); Cannabinoid Screen, Urine NEGATIVE (NEGATIVE); Cocaine Screen, Urine NEGATIVE (NEGATIVE); Opiate Scree,Urine NEGATIVE (NEGATIVE); Phencyclidine Screen, Urine NEGATIVE (NEGATIVE)
[2022-09-21 10:09] LABS: Urine Bacteria NONE SEEN /hpf (None Seen); Urine Blood Negative /uL (Negative); Urine Specific Gravity 1.004 (1.001-1.035); Urine WBC <1 /hpf (0 - 3)
[2022-09-21] MEDS ORDERED: NITROGLYCERIN 0.4 MG SL TAB SL PRN (10:45)
[2022-09-21] MEDS ORDERED: ACETAMINOPHEN 325 MG TAB PO PRN (10:45)
[2022-09-21] MEDS: chlordiazePOXIDE HCL 25 MG CAP PO SCH ×2 (11:11→18:30)
[2022-09-21] MEDS: LORazepam 2MG/ML-1ML VIAL IV PRN (11:12)
[2022-09-21 11:30] LABS: Blood Alcohol < 3.0 mg/dL (<10); Magnesium 2.1 mg/dL (1.6-2.6); Phosphorus 3.2 mg/dL (2.5-4.90)
[2022-09-21 11:52] LABS: INR 0.99 (0.9-1.15)
[2022-09-21] MEDS: MORPHINE SULFATE 4 MG/ML SYR/VIAL IV PRN ×2 (14:52→19:43)
[2022-09-21] MEDS: ONDANSETRON HCL 4 MG/2 ML VIAL IV PRN (19:41)
[2022-09-21] MEDS ORDERED: CHOL20007 PO (22:56)
[2022-09-21] MEDS ORDERED: NAP500T PO (22:57)
[2022-09-21] MEDS: SUCRALFATE 1 GM TAB PO SCH (23:53)
[2022-09-21] MEDS: AMIODARONE HCL 200 MG TAB PO SCH (23:53)
[2022-09-21] MEDS: ATORVASTATIN 20 MG TAB PO SCH (23:53)
[2022-09-22] MEDS: MORPHINE SULFATE INJ 2 MG/ml SYRG IV PRN ×3 (01:05→21:53)
[2022-09-22] MEDS: chlordiazePOXIDE HCL 25 MG CAP PO SCH ×3 (02:35→22:01)
[2022-09-22 05:00] VITALS: BP 114/67
[2022-09-22 05:42] LABS: Basophils # (auto) 0.1 10 ^3/uL (0-0.2); Basophils % (auto) 1.3 % (0.0-2.0); Eosinophils # (auto) 0.2 10 ^3/uL (0-0.8); Eosinophils % (auto) 4.4 % (0.0-7.0); Hematocrit 39.2 % (41.0-53.0); Hemoglobin 13.2 g/dL (13.5-17.5); Lymphocytes # (auto) 1.1 10 ^3/uL (0.4-5.4); Lymphocytes % (auto) 28.2 % (10.0-50.0); Mean Corpuscular Hemoglobin 28.5 pg (28.0-32.0); Mean Corpuscular Hgb Conc. 33.7 g/dL (32.0-36.0); Mean Corpuscular Volume 84.7 fL (80.0-100.0); Monocytes # (auto) 0.3 10 ^3/uL (0-1.3); Monocytes % (auto) 7.6 % (0.0-12.0); Neutrophils # (auto) 2.3 10 ^3/uL (1.6-8.6); Neutrophils % (auto) 58.5 % (37.0-80.0); Nucleated Red Blood Cells % 0.1 %; Red Blood Cells 4.63 10^6/uL (4.5-5.90); Red Cell Distribution Width 15.9 % (11.8-14.3)
[2022-09-22 06:09] LABS: Albumin 2.5 g/dL (3.4-5.0); Calcium 7.8 mg/dL (8.5-10.1)
[2022-09-22 06:11] LABS: BUN/Creatinine Ratio 11.9 (10.0-20.0)
[2022-09-22 06:14] LABS: Bilirubin, Total 0.3 mg/dL (0.2-1.0); Total Protein 4.8 g/dL (6.4-8.2)
[2022-09-22 08:00] VITALS: BP 144/93
[2022-09-22 08:44] VITALS: BP 144/93
[2022-09-22] MEDS: AMIODARONE HCL 200 MG TAB PO SCH ×2 (08:46→22:02)
[2022-09-22] MEDS: PANTOPRAZOLE 40 MG/10 ML VIAL INJ IV SCH (08:46)
[2022-09-22] MEDS: DOCUSATE SOD 100 MG CAP PO SCH (08:47)
[2022-09-22] MEDS: CITALOPRAM HYDROBR 20 MG TAB PO SCH (08:47)
[2022-09-22] MEDS: SERTRALINE HCL 50 MG TAB PO SCH (08:47)
[2022-09-22] MEDS: METOPROLOL TARTRATE 25 MG TAB PO SCH ×3 (08:47→22:03)
[2022-09-22] MEDS: SUCRALFATE 1 GM TAB PO SCH ×2 (08:48→22:04)
[2022-09-22] MEDS ORDERED: MVI in SODIUM CHLORIDE 0.9% 1,010 ML IV SCH ×2 (11:15→11:30)
[2022-09-22 12:00] VITALS: BP 140/95
[2022-09-22] MEDS: FOLIC ACID 1 MG, MULTIPLE VITAMIN 10 ML, MAGNESIUM SULF SDV 50% 8 MEQ, THIAMINE INJ 100... INJ SCH ×5 (12:35)
[2022-09-22 16:00] VITALS: BP 147/82
[2022-09-22] MEDS: LORazepam 2MG/ML-1ML VIAL IV PRN ×3 (16:34→22:57)
[2022-09-22 22:00] VITALS: BP 131/71
[2022-09-22] MEDS: ATORVASTATIN 20 MG TAB PO SCH (22:01)
[2022-09-23] MEDS: MORPHINE SULFATE INJ 2 MG/ml SYRG IV PRN ×3 (04:01→22:49)
[2022-09-23 05:00] VITALS: BP 124/74
[2022-09-23 06:09] LABS: Basophils # (auto) 0 10 ^3/uL (0-0.2); Basophils % (auto) 1.1 % (0.0-2.0); Eosinophils # (auto) 0.2 10 ^3/uL (0-0.8); Eosinophils % (auto) 4.5 % (0.0-7.0); Hematocrit 38.1 % (41.0-53.0); Hemoglobin 12.8 g/dL (13.5-17.5); Lymphocytes # (auto) 1.1 10 ^3/uL (0.4-5.4); Lymphocytes % (auto) 26.8 % (10.0-50.0); Mean Corpuscular Hemoglobin 28.6 pg (28.0-32.0); Mean Corpuscular Hgb Conc. 33.5 g/dL (32.0-36.0); Mean Corpuscular Volume 85.3 fL (80.0-100.0); Monocytes # (auto) 0.3 10 ^3/uL (0-1.3); Monocytes % (auto) 7.6 % (0.0-12.0); Neutrophils # (auto) 2.5 10 ^3/uL (1.6-8.6); Nucleated Red Blood Cells % 0.1 %; Red Blood Cells 4.47 10^6/uL (4.5-5.90); Red Cell Distribution Width 16.1 % (11.8-14.3); White Blood Cell 4.1 10^3/uL (4.4-10.8)
[2022-09-23 06:11] LABS: BUN/Creatinine Ratio 12.4 (10.0-20.0); Calcium 7.5 mg/dL (8.5-10.1)
[2022-09-23 08:00] VITALS: BP 154/88
[2022-09-23 09:00] VITALS: BP 154/88
[2022-09-23] MEDS: AMIODARONE HCL 200 MG TAB PO SCH ×2 (09:54→22:01)
[2022-09-23] MEDS: PANTOPRAZOLE 40 MG/10 ML VIAL INJ IV SCH (09:54)
[2022-09-23] MEDS: chlordiazePOXIDE HCL 25 MG CAP PO SCH ×2 (09:54→21:08)
[2022-09-23] MEDS: CITALOPRAM HYDROBR 20 MG TAB PO SCH (09:54)
[2022-09-23] MEDS: SUCRALFATE 1 GM TAB PO SCH ×2 (09:54→22:01)
[2022-09-23] MEDS: LORazepam 2MG/ML-1ML VIAL IV PRN ×2 (09:54→16:17)
[2022-09-23] MEDS: DOCUSATE SOD 100 MG CAP PO SCH (09:55)
[2022-09-23] MEDS: METOPROLOL TARTRATE 25 MG TAB PO SCH ×2 (09:55→22:02)
[2022-09-23] MEDS: SERTRALINE HCL 50 MG TAB PO SCH (09:55)
[2022-09-23 13:00] VITALS: BP 127/70
[2022-09-23] MEDS: FOLIC ACID 1 MG, MULTIPLE VITAMIN 10 ML, MAGNESIUM SULF SDV 50% 8 MEQ, THIAMINE INJ 100... INJ SCH ×5 (13:58)
[2022-09-23] MEDS ORDERED: diazePAM 5 MG TAB PO ONE (16:30)
[2022-09-23 17:00] VITALS: BP 125/88
[2022-09-23 22:00] VITALS: BP 153/84
[2022-09-23] MEDS: diazePAM 5 MG TAB PO SCH (22:00)
[2022-09-23] MEDS: ATORVASTATIN 20 MG TAB PO SCH (22:01)
[2022-09-24 05:00] VITALS: BP 140/82
[2022-09-24 06:36] LABS: BUN/Creatinine Ratio 13.5 (10.0-20.0); Calcium 7.8 mg/dL (8.5-10.1); Potassium 4.5 mmol/L (3.5-5.1)
[2022-09-24] MEDS: ONDANSETRON HCL 4 MG/2 ML VIAL IV PRN (06:46)
[2022-09-24] MEDS ORDERED: chlordiazePOXIDE HCL 25 MG CAP PO SCH (07:00)
[2022-09-24] MEDS: PANTOPRAZOLE 40 MG/10 ML VIAL INJ IV SCH (08:40)
[2022-09-24] MEDS: SUCRALFATE 1 GM TAB PO SCH ×2 (08:41→21:23)
[2022-09-24] MEDS: AMIODARONE HCL 200 MG TAB PO SCH ×2 (08:41→21:23)
[2022-09-24] MEDS: MORPHINE SULFATE INJ 2 MG/ml SYRG IV PRN ×3 (08:41→20:05)
[2022-09-24] MEDS: DOCUSATE SOD 100 MG CAP PO SCH (08:41)
[2022-09-24] MEDS: METOPROLOL TARTRATE 25 MG TAB PO SCH ×2 (08:42→21:24)
[2022-09-24] MEDS: SERTRALINE HCL 50 MG TAB PO SCH (08:42)
[2022-09-24] MEDS: diazePAM 5 MG TAB PO SCH ×2 (08:42→21:24)
[2022-09-24] MEDS: CITALOPRAM HYDROBR 20 MG TAB PO SCH (08:42)
[2022-09-24 10:44] VITALS: BP 122/86
[2022-09-24 10:52] LABS: Basophils # (auto) 0 10 ^3/uL (0-0.2); Basophils % (auto) 0.9 % (0.0-2.0); Eosinophils # (auto) 0.1 10 ^3/uL (0-0.8); Eosinophils % (auto) 2.7 % (0.0-7.0); Hematocrit 41.1 % (41.0-53.0); Hemoglobin 13.4 g/dL (13.5-17.5); Lymphocytes # (auto) 0.9 10 ^3/uL (0.4-5.4); Mean Corpuscular Hemoglobin 28.4 pg (28.0-32.0); Mean Corpuscular Hgb Conc. 32.6 g/dL (32.0-36.0); Mean Corpuscular Volume 86.9 fL (80.0-100.0); Monocytes # (auto) 0.4 10 ^3/uL (0-1.3); Monocytes % (auto) 8.1 % (0.0-12.0); Neutrophils # (auto) 3.8 10 ^3/uL (1.6-8.6); Neutrophils % (auto) 71.3 % (37.0-80.0); Nucleated Red Blood Cells % 0.1 %; Red Blood Cells 4.73 10^6/uL (4.5-5.90); Red Cell Distribution Width 16.2 % (11.8-14.3); White Blood Cell 5.4 10^3/uL (4.4-10.8)
[2022-09-24 12:39] VITALS: BP 109/73
[2022-09-24] MEDS: FOLIC ACID 1 MG, MULTIPLE VITAMIN 10 ML, MAGNESIUM SULF SDV 50% 8 MEQ, THIAMINE INJ 100... INJ SCH ×5 (12:43)
[2022-09-24] MEDS: LORazepam 2MG/ML-1ML VIAL IV PRN ×2 (12:49→17:52)
[2022-09-24 16:42] VITALS: BP 125/69
[2022-09-24] MEDS: ATORVASTATIN 20 MG TAB PO SCH (21:23)
[2022-09-24 22:00] VITALS: BP 114/61
[2022-09-25] MEDS: MORPHINE SULFATE INJ 2 MG/ml SYRG IV PRN ×2 (03:36→08:31)
[2022-09-25 05:01] VITALS: BP 115/59
[2022-09-25] MEDS: LORazepam 2MG/ML-1ML VIAL IV PRN ×2 (06:34→10:00)
[2022-09-25] MEDS: SERTRALINE HCL 50 MG TAB PO SCH (08:29)
[2022-09-25] MEDS: METOPROLOL TARTRATE 25 MG TAB PO SCH (08:29)
[2022-09-25] MEDS: CITALOPRAM HYDROBR 20 MG TAB PO SCH (08:30)
[2022-09-25] MEDS: diazePAM 5 MG TAB PO SCH (08:30)
[2022-09-25] MEDS: DOCUSATE SOD 100 MG CAP PO SCH (08:30)
[2022-09-25] MEDS: AMIODARONE HCL 200 MG TAB PO SCH (08:30)
[2022-09-25] MEDS: PANTOPRAZOLE 40 MG/10 ML VIAL INJ IV SCH (08:30)
[2022-09-25] MEDS: SUCRALFATE 1 GM TAB PO SCH (08:30)
[2022-09-25 09:00] VITALS: BP 138/94
[2022-09-25 09:01] VITALS: BP 132/89
[2022-09-25] MEDS ORDERED: ESCI10TA PO (11:24)
[2022-09-25] MEDS: FOLIC ACID 1 MG, MULTIPLE VITAMIN 10 ML, MAGNESIUM SULF SDV 50% 8 MEQ, THIAMINE INJ 100... INJ SCH ×5 (12:00)
== END 2022-09-25 14:10 | disposition home or self-care (01) | DRG 775 ==
LOC: EDSEX 07:18 → ER 07:18 → EDBD 07:18 → TELE 10:59 → TELE-WESTW 20:58
PROVIDERS: ADMIT Nurse Practitioner Family; ATTEND Nurse Practitioner Acute Care
DX: F10.239 Alcohol dependence with withdrawal, unspecified (principal); F10.220 Alcohol dependence with intoxication, uncomplicated; I85.11 Secondary esophageal varices with bleeding; E44.1 Mild protein-calorie malnutrition; R07.89 Other chest pain; K74.69 Other cirrhosis of liver; I48.91 Unspecified atrial fibrillation; I10 Essential (primary) hypertension; S80.02XA Contusion of left knee, initial encounter; W18.39XA Other fall on same level, initial encounter; E78.5 Hyperlipidemia, unspecified; F32.A Depression, unspecified; E66.01 Morbid (severe) obesity due to excess calories; Z68.42 Body mass index [BMI] 45.0-49.9, adult; Z88.0 Allergy status to penicillin; I25.2 Old myocardial infarction; Z91.040 Latex allergy status; Z88.2 Allergy status to sulfonamides; Z91.018 Allergy to other foods; Z79.899 Other long term (current) drug therapy; Z98.84 Bariatric surgery status; Z95.828 Presence of other vascular implants and grafts; Z86.718 Personal history of other venous thrombosis and embolism; Z86.711 Personal history of pulmonary embolism; Y93.89 Activity, other specified; Y92.89 Other specified places as the place of occurrence of the external cause; Y99.8 Other external cause status
CPT/HCPCS: 36415; 71045; 73610; 73630; 80048; 80053; 80307; 80320; 81001; 83690; 83735; 83880; 84100; 84484; 85025; 85610; 87081; 93005; 96361; 96374; 96375; 96376; C9113; G0378; J2405